=== PATIENT | male | born 1970 | race Caucasian/White ===

== ENCOUNTER 2018-02-16 21:30 | Inpatient (IN) | payer OTHER ==
[~2018-02-16] VITALS: Ht 177.8 cm; Wt 141.4 kg
[~2018-02-16 21:30] MED LIST: AMLODIPINE BESYL5 MG PO; ASPIRIN325 MG PO; DAILY MULTIPLE1 EACH PO; DIOVAN320 MG PO; DULOXETINE HCL30 MG PO; ENDUR ACIN PO; GEMFIBROZIL600 MG PO; METOPROLOL SUC100 MG PO; VITAMIN D32000 UNI1 PO
[2018-02-17 11:52] VITALS: BP 164/81
[2018-02-17 15:52] VITALS: BP 118/68
[2018-02-17 19:57] VITALS: BP 123/67
[2018-02-17 23:29] VITALS: BP 126/76
[2018-02-18 04:04] VITALS: BP 131/70; BP 142/88
[2018-02-18 06:59] LABS: MCH 32.3 PG (29.0-34.0); MCHC 34.1 G/DL (30.0-36.0); MCV 94.8 FL (86-99); PLATELET COUNT 206 K/uL (156-360); RBC DIS.WIDTH-CV 12.8 % (11.8-14.6); RBC DIS.WIDTH-SD 44.3 % (39-53); RED BLOOD COUNT 4.64 M/uL (4.00-5.50); WHITE BLOOD COUNT 16.8 K/uL (4.1-10.2)
[2018-02-18 07:49] VITALS: BP 121/67
== END 2018-02-18 11:40 | disposition home or self-care (01) | DRG 621 ==
LOC: ENRESERV 21:30 → 2SOUTH 02-17 08:53 → ENRESERV 02-17 15:22 → 2EAST 02-17 15:41 → 2SOUTH 02-17 16:54 → 2EAST 02-18 11:40
PROVIDERS: Surgery
PROC: 0DB64Z3 Excision of Stomach, Percutaneous Endoscopic Approach, Vertical (ICD-10-PCS; principal; 2018-02-17)
DX: E66.01 Morbid (severe) obesity due to excess calories (principal); Z68.41 Body mass index [BMI] 40.0-44.9, adult; I10 Essential (primary) hypertension; E78.00 Pure hypercholesterolemia, unspecified; G47.33 Obstructive sleep apnea (adult) (pediatric); J30.2 Other seasonal allergic rhinitis; F41.9 Anxiety disorder, unspecified; Z87.891 Personal history of nicotine dependence; Z80.51 Family history of malignant neoplasm of kidney; Z82.3 Family history of stroke; Z82.49 Family history of ischemic heart disease and other diseases of the circulatory system
CPT/HCPCS: 82948; 85027; 94799; C9113; J0131; J0330; J0690; J1100; J1644; J1650; J1885; J2250; J2405; J2710; J3480; J7120; J7643; Q0175; S0020